=== PATIENT | male | born 2000 | race Hispanic/Latino ===

== ENCOUNTER → 2024-12-13 06:54 | Outpatient (CLI) | payer OTHER, SELFPAY ==
--- NOTE | 2024-12-13 07:21 | DI.CT.S_ITS ---
PROCEDURE: CT SOFT TISSUE NECK WO CON INDICATIONS: PROGRESSIVE SORE THROAT TECHNIQUE: Non-contrast 3.0 mm axial sections acquired from the sella to the aortic arch. Additional oblique axial 3.0 mm sections acquired through the pharynx. 3 mm thick coronal and sagittal reformats were generated. For radiation dose reduction, the following was used: automated exposure control. COMPARISON: None. FINDINGS: Image quality: Diagnostic sensitivity study limited secondary to lack of IV contrast. Lymph nodes: No enlarged lymph nodes seen throughout the neck. Vessels: Non-opacified vessels appear normal in caliber. Neck spaces: Enlargement of the bilateral palatine tonsils and nasopharyngeal tonsils. The oropharynx, nasopharynx, and pharynx demonstrate no mucosal lesions. The vocal cords, false vocal cords, pyriform sinuses, epiglottis, vallecula, and tongue base all appear normal. Extramucosal spaces appear unremarkable. No definite mass or soft tissue edema/swelling within limitations of noncontrast imaging is identified deep to metallic BB localizer placed over the anterolateral left neck in the region of clinical interest. Glands: The parotid and submandibular glands appear normal, without stones. Thyroid gland is normal. . Bones: No aggressive osseous abnormality. No displaced fractures. Miscellaneous: Visualized brain and orbits appear normal. Right maxillary sinus mucous retention cyst. Minimal mucosal thickening in the maxillary sinuses. Lung apices appear clear. Superficial soft tissues appear normal. IMPRESSION: No abnormal mass or soft tissue edema/swelling identified within limitations related to noncontrast imaging. No lymphadenopathy based on size criteria. Bilateral palatine tonsil and nasopharyngeal tonsil enlargement which could be secondary to inflammatory/infectious process, hyperplasia or neoplastic process. Recommend correlation with physical findings. Dictated by: Yadira Ribera MD, PhD on 12/13/2024 at 12:06 Approved by: Yadira Ribera MD, PhD on 12/13/2024 at 12:11
== END ==
PROVIDERS: Referring Provider Family Medicine; Visit Provider Family Medicine
DX: J02.9 Acute pharyngitis, unspecified (principal); J35.1 Hypertrophy of tonsils
CPT/HCPCS: 70490